=== PATIENT | male | born 1970 | race Caucasian/White ===

== ENCOUNTER 2024-12-13 17:51 | Emergency (ER) | payer OTHER ==
[2024-12-13 18:12] VITALS: TEMP 98.5
--- NOTE | 2024-12-13 19:31 | ED ---
Male Urogenital HPI - General Source: patient Mode of arrival: ambulatory Limitations: no limitations <Cecelia Doll - Last Filed: 12/13/24 19:30> <Milla Lopes - Last Filed: 12/14/24 00:04> - General Chief complaint: Urogenital Stated complaint: Urogenital Time Seen by Provider: 12/13/24 19:30 - History of Present Illness Initial comments: Quick note: 54-year-old male presenting with chief complaint of "I am having issues with my prostate". He reports that he is having difficulty urinating. He is taking Flomax. No abdominal pain back pain fever chills nausea or vomiting. (Cecelia Doll) This is a 54-year-old male with a history of BPH presenting to the emergency department with complaints that he feels that he is having issues with his prostate. States that over the past few days he has been having difficulty urinating. States that he is only able to initiate urinary stream while he was sitting and needs to press on his bladder for urine to pass. He is denying hematuria, dysuria, creased urinary frequency or urgency, fevers chills nausea or vomiting. Denies abdominal pain, flank pain or back pain. He states that he takes Flomax as prescribed daily (Milla Lopes) - Related Data Allergies Allergy/AdvReac Type Severity Reaction Status Date / Time No Known Allergies Allergy Verified 12/13/24 18:12 Review of Systems ROS Other: All systems not noted in ROS Statement are negative. <Cecelia Doll - Last Filed: 12/13/24 19:30> ROS Other: All systems not noted in ROS Statement are negative. <Milla Lopes - Last Filed: 12/14/24 00:04> ROS Statement: Those systems with pertinent positive or pertinent negative responses have been documented in the HPI. Past Medical History Past Medical History: Prostate Disorder, Seizure Disorder History of Any Multi-Drug Resistant Organisms: None Reported Past Surgical History: No Surgical Hx Reported Past Psychological History: Bipolar Smoking Status: Current every day smoker Past Alcohol Use History: None Reported Past Drug Use History: None Reported <Cecelia Doll - Last Filed: 12/13/24 19:30> General Exam Limitations: no limitations <Cecelia Doll - Last Filed: 12/13/24 19:30> General appearance: alert, in no apparent distress Neck exam: Present: normal inspection. Absent: tenderness, meningismus, lymphadenopathy Respiratory exam: Present: normal lung sounds bilaterally. Absent: respiratory distress, wheezes, rales, rhonchi, stridor Cardiovascular Exam: Present: regular rate, normal rhythm, normal heart sounds. Absent: systolic murmur, diastolic murmur, rubs, gallop, clicks GI/Abdominal exam: Present: soft, normal bowel sounds. Absent: distended, tenderness, guarding, rebound, rigid Extremities exam: Present: normal inspection, full ROM, normal capillary refill. Absent: tenderness, pedal edema, joint swelling, calf tenderness Back exam: Present: normal inspection. Absent: CVA tenderness (R), CVA tenderness (L) <Milla Lopes - Last Filed: 12/14/24 00:04> - General Exam Comments Initial Comments: Visual Physical Exam Vital signs reviewed General: Well-appearing, nontoxic, no acute distress. Head: Normocephalic, atraumatic Eyes: PERRLA, EOMI ENT: Airway patent Chest: Nonlabored breathing Skin: No visual rash, normal skin tone Neuro: Alert and oriented 3 Musculoskeletal: No gross abnormalities (Cecelia Doll) Course Vital Signs 12/13/24 12/13/24 12/13/24 18:09 21:48 22:34 Temperature 98.5 F 98.5 F Pulse Rate 66 67 73 Respiratory 20 18 18 Rate Blood Pressure 153/94 153/97 O2 Sat by Pulse 100 98 99 Oximetry Medical Decision Making <Cecelia Doll - Last Filed: 12/13/24 19:30> <Milla Lopes - Last Filed: 12/14/24 00:04> - Medical Decision Making I performed the quick note portion of this visit, electronically signed Cecelia Doll PA-C (Cecelia Doll) Was pt. sent in by a medical professional or institution ([facility], PNEUMATIC JACK OPERATOR, urgent care, hospital, or detention...) When possible be specific @ -No Did you speak to anyone other than the patient for history (EMS, parent, family, police, friend...)? What history was obtained from this source @ -No Did you review nursing and triage notes (agree or disagree)? Why? @ -I reviewed and agree with nursing and triage notes Were old charts reviewed (outside hosp., previous admission, EMS record, old EKG, old radiological studies, urgent care reports/EKG's, detention records)? Report findings @ -No old charts were reviewed Differential Diagnosis (chest pain, altered mental status, abdominal pain women, abdominal pain men, vaginal bleeding, weakness, fever, dyspnea, syncope, headache, dizziness, GI bleed, back pain, seizure, CVA, palpatations, mental health, musculoskeletal)? @ -Benign prostatic hyperplasia, ureterolithiasis, urinary tract infection, this list is not all inclusive EKG interpreted by me (3pts min.). @ -None X-rays interpreted by me (1pt min.). @ -None done CT interpreted by me (1pt min.). @ -None done U/S interpreted by me (1pt. min.). @ -None done What testing was considered but not performed or refused? (CT, X-rays, U/S, labs)? Why? @ -None What meds were considered but not given or refused? Why? @ -None Did you discuss the management of the patient with other professionals (professionals i.e. Dr., PA, PNEUMATIC JACK OPERATOR, lab, RT, psych nurse, school social worker, rn pool, teacher, special weapons and tactics officer, employment case manager)? Give summary @ -No Was smoking cessation discussed for >3mins.? @ -No Was critical care preformed (if so, how long)? @ -No Were there social determinants of health that impacted care today? How? (Homelessness, low income, unemployed, alcoholism, drug addiction, transportation, low edu. Level, literacy, decrease access to med. care, long-term, rehab)? @ -No Was there de-escalation of care discussed even if they declined (Discuss DNR or withdrawal of care, Hospice)? DNR status @ -No What co-morbidities impacted this encounter? (DM, HTN, Smoking, COPD, CAD, Cancer, CVA, ARF, Chemo, Hep., AIDS, mental health diagnosis, sleep apnea, morbid obesity)? @ -None Was patient admitted / discharged? Hospital course, mention meds given and route, prescriptions, significant lab abnormalities, going to OR and other pertinent info. @ -discharged. Patient is originally evaluated in the emergency department waiting room where a urinalysis is ordered. Patient's postvoid bladder scan reveals a retained amount of urine of 294 mL. I spoke with the patient in his examination room with concern of retained urine after post void and recommended that Jacob catheter be placed. Patient has refused stating that he would like to follow-up instead. Urinalysis is unremarkable. Patient has verbalized the risks of not having a Jacob catheter placed and states that he will return back to the emergency department if he persists to have urinary retention. He is provided with a referral to a urologist. Case discussed with Dr. Caldwell Undiagnosed new problem with uncertain prognosis? @ -No Drug Therapy requiring intensive monitoring for toxicity (Heparin, Nitro, Insulin, Cardizem)? @ -No Were any procedures done? @ -No Diagnosis/symptom? @ -Urinary retention Acute, or Chronic, or Acute on Chronic? @ -Acute Uncomplicated (without systemic symptoms) or Complicated (systemic symptoms)? @ -Uncomplicated Side effects of treatment? @ -No Exacerbation, Progression, or Severe Exacerbation? @ -No Poses a threat to life or bodily function? How? (Chest pain, [place], [place], pneumonia, PE, COPD, DKA, ARF, appy, cholecystitis, CVA, Diverticulitis, Homicidal, Suicidal, threat to staff... and all critical care pts) @ -No (Milla Lopes) - Lab Data Lab Results 12/13/24 Range/Units 20:06 Urine Color Yellow Urine Appearance Clear (Clear) Urine pH 6.0 (5.0-8.0) Ur Specific [place] 1.028 (1.001-1.035) Urine Protein Negative (Negative) Urine Glucose (UA) Negative (Negative) Urine Ketones Negative (Negative) Urine Blood Negative (Negative) Urine Nitrite Negative (Negative) Urine Bilirubin Negative (Negative) Urine Urobilinogen <2.0 (<2.0) mg/dL Ur Leukocyte Esterase Negative (Negative) Disposition <Cecelia Doll - Last Filed: 12/13/24 19:30> Is patient prescribed a controlled substance at d/c from ED?: No Time of Disposition: 22:13 <Milla Lopes - Last Filed: 12/14/24 00:04> Clinical Impression: Urinary retention due to benign prostatic hyperplasia Disposition: HOME SELF-CARE Condition: Good Instructions (If sedation given, give patient instructions): Urinary Retention in Men (ED) Additional Instructions: Please return to the Emergency Department if symptoms worsen or any other concerns. Referrals: None,Stated [Primary Care Provider] - 1-2 days Nino Doe MD [STAFF PHYSICIAN] - 1-2 days
[2024-12-13 20:33] LABS: Bilirubin,Urine Negative (Negative); Blood,Urine Negative (Negative); Color,Urine Yellow; Glucose,Urine (UA) Negative (Negative); Ketones,Urine Negative (Negative); Leukocyte Esterase,Urine Negative (Negative); Nitrite,Urine Negative (Negative); PH, Urine 6.0 (5.0-8.0); Protein,Urine Negative (Negative); Specific Gravity,Urine 1.028 (1.001-1.035); Urobilinogen,Urine <2.0 mg/dL (<2.0)
[2024-12-13 21:49] VITALS: RESP 18
[2024-12-13 22:35] VITALS: BP 153/97; PULSE 73
== END 2024-12-13 22:34 | disposition home or self-care (01) ==
LOC: EC 17:51
DX: N40.1 Benign prostatic hyperplasia with lower urinary tract symptoms (principal); F17.200 Nicotine dependence, unspecified, uncomplicated
CPT/HCPCS: 51798; 81003; 99283